=== PATIENT | male | born 1975 ===

== ENCOUNTER 2020-07-16 06:51 | Day surgery (SDC) | payer OTHER ==
[2020-07-16] MEDS ORDERED: BACTRIM DS TAB1 EACH PO (18:25)
[2020-07-16] MEDS ORDERED: ECOTRIN325 M1 PO (18:25)
[2020-07-16] MEDS ORDERED: OXYC1TAB9 PO (18:25)
== END 2020-07-16 22:30 | disposition home or self-care (01) ==
LOC: CIR.AMB 06:51
PROVIDERS: ATTEND Orthopaedic Surgery Sports Medicine
DX: S92.341A Displaced fracture of fourth metatarsal bone, right foot, initial encounter for closed fracture (principal); Z20.822 Contact with and (suspected) exposure to COVID-19
CPT/HCPCS: 28485; C1776